=== PATIENT | female | born 1975 | race Caucasian/White ===

== ENCOUNTER 2021-05-28 21:14 | Inpatient (IN) ==
[2021-05-28] MEDS ORDERED: Vancomycin (wt based) 1,000 MG VIAL IV STA (21:56)
[2021-05-28] MEDS ORDERED: Piperacillin/Tazobactam 3.375 GM in Water for inj. (sterile) 20 ML IVP ONE (21:56)
[2021-05-28] MEDS ORDERED: Isovue-370 500 ML BOTTLE IVP ONE (21:56)
[2021-05-28] MEDS ORDERED: *HR* HYDROmorphone (PF) 1 MG/ML SYRINGE IVP ONE (21:56)
[2021-05-28 23:25] LABS: Bacteria,Urine Few per hpf (None-Few); Bilirubin,Urine Negative (Negative); Blood,Urine Small (Negative); Clarity,Urine Turbid (Clear); Color,Urine Yellow (Yellow); Glucose,Urine (UA) 500 mg/dL (Normal); Ketones,Urine Negative (Negative); Leukocyte Esterase,Urine Moderate (Negative); Mucus,Urine Few per lpf (None-Few); Nitrite,Urine Negative (Negative); PH,Urine 7.5 pH Units (5.0-8.0); Protein,Urine >=300 mg/dL (Neg-Trace); Specific Gravity,Urine 1.014 (1.010-1.025); Squamous Epithelial Cell,Urine Few per hpf (None-Few); Urobilinogen,Urine Normal (Normal); WBC,Urine 30-50 per hpf (0-3)
[2021-05-28 23:53] LABS: Basophils % 0.1 %; Eosinophils % 0.1 %; Hematocrit 29.8 % (35.3-44.9); Hemoglobin 9.2 g/dL (11.5-15.4); Immature Granulocytes % 0.4 % (0-4); Lymphocytes # 0.7 K/mcL (0.6-4.6); Lymphocytes % 3.9 %; Mean Corpuscular HGB Conc 30.9 g/dL (31.6-35.5); Mean Corpuscular Hemoglobin 28.1 pg (28.0-33.3); Mean Corpuscular Volume 91.1 fL (83.0-100.0); Mean Platelet Volume 9.8 fL (9.4-12.4); Monocytes # 0.8 K/mcL (0.0-1.3); Monocytes % 4.6 %; Neutrophils # 15.3 K/mcL (1.6-8.9); Platelet Count 342 K/mcL (140-400); Red Blood Count 3.27 M/mcL (3.82-4.97); Red Cell Distribution Width 14.3 % (11.5-14.5); Segmented Neutrophils % 90.9 %; White Blood Count 16.9 K/mcL (4.3-11.1)
[2021-05-29 00:20] LABS: Albumin 3.4 g/dL (3.5-5.7); Bilirubin,Indirect 0.2 mg/dL (0.0-1.0); Bilirubin,Total 0.2 mg/dL (0.3-1.0); Calcium 8.5 mg/dL (8.6-10.3); Globulin 3.4 g/dL (2.4-3.5); Potassium 4.4 mEq/L (3.5-5.1); Total Protein 6.8 g/dL (6.4-8.9); Troponin I 0.05 ng/mL (< 0.04)
[2021-05-29] MEDS ORDERED: Naloxone 0.4 MG/ML INJ IVP PRN (01:53)
[2021-05-29] MEDS ORDERED: *HR* Promethazine 25 MG/ML VIAL IM PRN (01:53)
[2021-05-29] MEDS ORDERED: *HR* HYDROcodone/Acet 5/325 mg TABLET PO PRN (01:53)
[2021-05-29] MEDS ORDERED: Ondansetron 4 MG/2 ML VIAL IVP PRN (01:53)
[2021-05-29] MEDS ORDERED: Acetaminophen 325 MG TABLET PO PRN (01:53)
[2021-05-29] MEDS ORDERED: Melatonin 3 MG TABLET PO PRN (01:53)
[2021-05-29] MEDS ORDERED: *HR* Labetalol 20 MG/4 ML SYRINGE IVP PRN (01:59)
[2021-05-29] MEDS ORDERED: *HR* Dextrose 50 % in Water (Vial) 50 ML VIAL IVP PRN (02:00)
[2021-05-29] MEDS ORDERED: Dextrose Gel 15 GM/37.5 ML TUBE PO PRN ×2 (02:00)
[2021-05-29] MEDS ORDERED: D5% in Water 1,000 ML IVC PRN (02:00)
[2021-05-29] MEDS ORDERED: Piperacillin/Tazobactam 3.375 GM in Water for inj. (sterile) 20 ML IVP ONE (02:00)
[2021-05-29] MEDS ORDERED: Ringers Solution, Lactated 500 ML IVC ONE (02:15)
[2021-05-29] MEDS ORDERED: Ringers Solution, Lactated 250 ML IVC PRN (05:19)
[2021-05-29 05:49] LABS: Hemoglobin 8.4 g/dL (11.5-15.4); Mean Corpuscular HGB Conc 32.3 g/dL (31.6-35.5); Mean Corpuscular Hemoglobin 29.1 pg (28.0-33.3); Mean Platelet Volume 9.8 fL (9.4-12.4); Platelet Count 306 K/mcL (140-400); Red Blood Count 2.89 M/mcL (3.82-4.97); Red Cell Distribution Width 14.3 % (11.5-14.5); White Blood Count 14.6 K/mcL (4.3-11.1)
[2021-05-29] MEDS ORDERED: Cefepime HCl 1,000 MG in Water for inj. (sterile) 20 ML IVPB SCH (06:00)
[2021-05-29 06:02] LABS: INR 1.2
[2021-05-29 06:11] LABS: Calcium 8.2 mg/dL (8.6-10.3); Magnesium 1.8 mg/dL (1.6-2.6); Phosphorous 8.5 mg/dL (2.7-4.5); Potassium 4.5 mEq/L (3.5-5.1)
[2021-05-29] MEDS: Morphine Sulfate 2 MG/ML SYRINGE IVP PRN ×3 (06:18→22:20)
[2021-05-29] MEDS ORDERED: Cefepime HCl 2,000 MG in Water for inj. (sterile) 20 ML IVP SCH (08:00)
[2021-05-29] MEDS: Insulin LISPRO 300 UNITS/3 ML VIAL SUBQ SCH ×3 (09:40→17:43)
[2021-05-29] MEDS: *HR* Heparin 5,000 UNIT/ML VIAL SQ SCH (17:34)
[2021-05-29] MEDS: Calcium Acetate 667 MG CAPSULE PO SCH (17:34)
[2021-05-29] MEDS: Piperacillin/Tazobactam 3.375 GM in 0.9 % Sodium Chloride Mini Bag 100 ML IVPB SCH (17:40)
[2021-05-29] MEDS ORDERED: Perit. Dialysis with Dex 2.5 % 12,000 ML PERITONEAL ONE (19:00)
[2021-05-29] MEDS: Gentamicin Oint 15 GM TUBE TP SCH (21:07)
[2021-05-30] MEDS: Insulin LISPRO 300 UNITS/3 ML VIAL SUBQ SCH ×4 (02:23→17:10)
[2021-05-30 04:57] LABS: Hepatitis B Surface Antigen Nonreactive (Nonreactive)
[2021-05-30] MEDS: Piperacillin/Tazobactam 3.375 GM in 0.9 % Sodium Chloride Mini Bag 100 ML IVPB SCH ×2 (06:44→17:09)
[2021-05-30 06:47] LABS: Basophils % 0.2 %; Eosinophils # 0.2 K/mcL (0.0-0.6); Eosinophils % 1.6 %; Hematocrit 27.3 % (35.3-44.9); Hemoglobin 8.6 g/dL (11.5-15.4); Immature Granulocytes % 0.4 % (0-4); Lymphocytes # 1.5 K/mcL (0.6-4.6); Mean Corpuscular HGB Conc 31.5 g/dL (31.6-35.5); Mean Corpuscular Hemoglobin 28.5 pg (28.0-33.3); Mean Corpuscular Volume 90.4 fL (83.0-100.0); Mean Platelet Volume 9.9 fL (9.4-12.4); Monocytes # 0.7 K/mcL (0.0-1.3); Neutrophils # 8.4 K/mcL (1.6-8.9); Platelet Count 340 K/mcL (140-400); Red Blood Count 3.02 M/mcL (3.82-4.97); Red Cell Distribution Width 14.3 % (11.5-14.5); Segmented Neutrophils % 77.8 %; White Blood Count 10.8 K/mcL (4.3-11.1)
[2021-05-30] MEDS: Morphine Sulfate 2 MG/ML SYRINGE IVP PRN ×3 (06:47→22:18)
[2021-05-30] MEDS: *HR* Heparin 5,000 UNIT/ML VIAL SQ SCH ×2 (06:47→17:09)
[2021-05-30] MEDS: Gentamicin Oint 15 GM TUBE TP SCH ×2 (06:52→22:18)
[2021-05-30 07:07] LABS: Albumin/Globulin Ratio 0.9 (1.1-2.2); Bilirubin,Total 0.2 mg/dL (0.3-1.0); Calcium 8.3 mg/dL (8.6-10.3); Globulin 3.5 g/dL (2.4-3.5); Potassium 3.9 mEq/L (3.5-5.1); Total Protein 6.5 g/dL (6.4-8.9)
[2021-05-30] MEDS: Calcium Acetate 667 MG CAPSULE PO SCH ×3 (09:24→17:09)
[2021-05-30 10:31] LABS: RBC,Peritoneal Fluid < 2000 RBC/mcL
[2021-05-30 10:49] LABS: Glucose,Peritoneal Fluid > 800 mg/dL (No Ref Range); Total Protein,Peritoneal Fluid < 2.0 g/dL
[2021-05-30 11:35] LABS: Appearance of Peritoneal Fl CLEAR (Clear)
[2021-05-30 11:36] LABS: Basophils,Peritoneal Fluid 0 %; Eosinophils,Peritoneal Fluid 0 %
[2021-05-30] MEDS ORDERED: Perit. Dialysis with Dex 2.5 % 12,000 ML PERITONEAL ONE (19:00)
[2021-05-31] MEDS: Insulin LISPRO 300 UNITS/3 ML VIAL SUBQ SCH ×3 (00:47→11:41)
[2021-05-31 05:01] LABS: Hematocrit 26.9 % (35.3-44.9); Hemoglobin 8.5 g/dL (11.5-15.4); Mean Corpuscular HGB Conc 31.6 g/dL (31.6-35.5); Mean Corpuscular Hemoglobin 28.8 pg (28.0-33.3); Mean Corpuscular Volume 91.2 fL (83.0-100.0); Mean Platelet Volume 10.1 fL (9.4-12.4); Platelet Count 353 K/mcL (140-400); Red Blood Count 2.95 M/mcL (3.82-4.97); Red Cell Distribution Width 14.2 % (11.5-14.5); White Blood Count 10.8 K/mcL (4.3-11.1)
[2021-05-31 05:19] LABS: Calcium 8.5 mg/dL (8.6-10.3)
[2021-05-31] MEDS: Piperacillin/Tazobactam 3.375 GM in 0.9 % Sodium Chloride Mini Bag 100 ML IVPB SCH (05:36)
[2021-05-31] MEDS: *HR* Heparin 5,000 UNIT/ML VIAL SQ SCH (05:36)
[2021-05-31] MEDS: Calcium Acetate 667 MG CAPSULE PO SCH ×2 (09:07→11:41)
[2021-05-31] MEDS: Morphine Sulfate 2 MG/ML SYRINGE IVP PRN (09:17)
[2021-05-31 10:57] VITALS: BP 173/79
== END 2021-05-31 16:30 | disposition home or self-care (01) | DRG 466 ==
LOC: CDU 21:14 → EMEROOARM 21:14 → SUATTDRO 05-29 01:52 → CDU 05-29 04:46 → 2ANU 05-29 14:23
PROVIDERS: ADMIT Internal Medicine; ATTEND Internal Medicine